=== PATIENT | female | born 1955 | race Asian ===

== ENCOUNTER 2016-09-19 14:23 | Outpatient (REF) | END 2016-09-19 21:29 | disposition home or self-care (01) | LOC: MRD 14:23 | DX: Z02.1 Encounter for pre-employment examination (principal); R76.11 Nonspecific reaction to tuberculin skin test without active tuberculosis ==

== ENCOUNTER 2021-01-28 09:47 | Outpatient (CLI) | payer OTHER ==
[2021-01-28 11:24] LABS: BILIRUBIN,URINE NEGATIVE (NEGATIVE); BLOOD, URINE NEGATIVE (NEGATIVE); COLOR,URINE YELLOW (YELLOW); LEUKOCYTE ESTERASE ,URINE 1+ (NEGATIVE); NITRITE, URINE POSITIVE (NEGATIVE); UGLUCOSE NEGATIVE (NEGATIVE)
[2021-01-28 11:25] LABS: APPEARANCE,URINE HAZY (CLEAR)
[2021-01-28 11:31] LABS: RBC,URINE 0-5 /HPF (0-5); WBC,URINE 0-5 /HPF (0-5)
== END 2021-01-28 20:17 | disposition home or self-care (01) ==
LOC: MLB 09:47
PROVIDERS: ATTEND Internal Medicine Geriatric Medicine
DX: N39.0 Urinary tract infection, site not specified (principal)
CPT/HCPCS: 81001; 87086

== ENCOUNTER 2021-05-14 00:16 | Outpatient (CLI) | payer OTHER | END 2021-05-14 19:38 | disposition home or self-care (01) | LOC: MRD 00:16 | PROVIDERS: ATTEND Internal Medicine Geriatric Medicine | DX: M17.12 Unilateral primary osteoarthritis, left knee (principal); M19.042 Primary osteoarthritis, left hand; M76.52 Patellar tendinitis, left knee; M25.562 Pain in left knee; M79.645 Pain in left finger(s) | CPT/HCPCS: 73140; 73562 ==